=== PATIENT | female | born 1995 ===

== ENCOUNTER 2022-06-16 23:26 | Emergency (ER) | payer BC, SELFPAY ==
--- NOTE | 2022-06-16 23:48 | PC.NURSE ---
Patient came to desk after getting ID band on and stated she wants to go to a room right away, I was told I would be, I was sent from [facility] and they said I would get a room right away and have an ultrasound and CT done because of my pain. Patient was informed that she will be checked in and a protocol started since the rooms are full at this time. She was informed that the patients go back based on acuity and that she will be taken back to a room when it is her turn and a room is available. Patient then states that's ok, I will come back in the morning when there is no line. Patient informed that with ER patients come and get rooms based on acuity and that she will get to see a physician as soon as available. Patient and her SO stated that's not okay, I will come back in the morning cause I am not waiting in the waiting room. Patient and her SO were informed of risks of leaving before being seen by a provider and benefits of staying to be evaluated. Patient and her SO verbalized understanding and stated we will be back later and will come back sooner if we need to. Patient and her SO ambulated out of the ED with a steady gait.
== END 2022-06-16 23:58 | disposition left against medical advice (07) ==
LOC: ANHED 23:42
DX: Z53.21 Procedure and treatment not carried out due to patient leaving prior to being seen by health care provider (principal)
CPT/HCPCS: 99199